=== PATIENT | female | born 1970 | race Two or more races ===

== ENCOUNTER 2024-07-29 10:40 | Inpatient (IN) | payer OTHER ==
[~2024-07-29] VITALS: Ht 162.6 cm; Wt 63.0 kg
[2024-07-29 11:15] LABS: BASOPHILS % (AUTO) 0.9 % (0.0-2.0); HEMATOCRIT 38.2 % (36-46); HEMOGLOBIN 12.4 g/dL (12.0-16.0); LYMPHOCYTES % (AUTO) 33.4 % (22.0-44.0); MEAN CORPUSCULAR HEMOGLOBIN 27.6 pg (26.0-34.0); MEAN CORPUSCULAR HGB CONC 32.3 G/dL (31.0-37.0); MEAN CORPUSCULAR VOLUME 85 fL (80-100); MONOCYTES # (AUTO) 0.5 K/uL (0.1-1.0); MONOCYTES % (AUTO) 7.5 % (2.0-9.0); NEUTROPHILS # (AUTO) 3.3 K/uL (1.8-7.7); NEUTROPHILS % (AUTO) 54.2 % (40.0-70.0); PLATELET COUNT (AUTO) 366 K/uL (150-450); RED BLOOD CELL COUNT(AUTO) 4.48 MIL/uL (4.00-5.20); RED CELL DISTRIBUTION WIDTH 13.3 % (11.5-14.5); WHITE BLOOD COUNT (AUTO) 6.1 K/uL (4.5-11.0)
[2024-07-29 11:27] LABS: ANION GAP 4 mmol/L (8-16); CALCIUM, TOTAL 8.8 mg/dL (8.8-10.5); CARBON DIOXIDE 32 mmol/L (22-29); CHLORIDE 109 mmol/L (98-107); CREATININE 0.72 mg/dL (0.60-1.30); GLOMERULAR FILTR. RATE CALC > 60 mL/min (>60); GLUCOSE,RANDOM 97 mg/dL (70-110); POTASSIUM 4.1 mmol/L (3.5-5.1); SODIUM SERUM 145 mmol/L (136-145); UREA NITROGEN, BLOOD 19 mg/dL (7-18)
[2024-07-29 11:30] LABS: TROPONIN I-HIGH SENSITIVITY 25 ng/L (<51)
[2024-07-29 11:41] LABS: APPEARANCE,URINE HAZY (CLEAR); BILIRUBIN,URINE NEGATIVE (NEGATIVE); COLOR,URINE YELLOW (YELLOW); GLUCOSE, URINE (UA) NEGATIVE (NEGATIVE); KETONES,URINE NEGATIVE (NEGATIVE); LEUKOCYTE ESTERASE ,URINE LARGE (NEGATIVE); NITRATE,URINE POSITIVE (NEGATIVE); OCCULT BLOOD,URINE NEGATIVE (NEGATIVE); PH,URINE 6.5 (5.0-8.0); PH,URINE DRUG SCREEN 6.5 (5.0-8.0); PROTEIN,URINE TRACE mg/dL (NEGATIVE); SPECIFIC GRAVITIY, URINE 1.025 (1.003-1.030); UROBILINOGEN,URINE <=1.0 mg/dL (<=1.0)
[2024-07-29 11:50] LABS: ALCOHOL, BLOOD (SERUM) < 3 mg/dL (0-10)
[2024-07-29 11:54] LABS: ALCOHOL, URINE DRUG SCREEN NEGATIVE (NEGATIVE); AMPHET/METH SCREEN,URINE NEGATIVE (NEGATIVE); BARBITURATE SCREEN, URINE NEGATIVE (NEGATIVE); BENZODIAZEPINES SCREEN,URINE NEGATIVE (NEGATIVE); CANNABINOID SCREEN,URINE NEGATIVE (NEGATIVE); COCAINE SCREEN,URINE NEGATIVE (NEGATIVE); METHADONE SCREEN, URINE NEGATIVE (NEGATIVE); OPIATE SCREEN,URINE NEGATIVE (NEGATIVE); PHENCYCLIDINE SCREEN,URINE NEGATIVE (NEGATIVE)
[2024-07-29] MEDS ORDERED: MAGNESIUM HYDROXIDE SUSPENSION 30 ML UDCUP PO PRN (12:30)
[2024-07-29] MEDS ORDERED: ZOLPIDEM TARTRATE 5 MG TABLET PO PRN (12:30)
[2024-07-29] MEDS: CefTRIAXone 1 GM/DEXTROSE 50 ML IV SCH (12:45)
[2024-07-29 13:04] LABS: BACTERIA,URINE Many /HPF (None Seen); RBC,URINE None Seen /HPF (0-2); WBC,URINE 26-50 /HPF (0-5)
[2024-07-29] MEDS ORDERED: INFLUENZA VIRUS VACCINE TVS (6MO+) 2024-25/PF 45 MCG/0.5 ML SYRINGE IM. ONE (16:45)
[2024-07-29 17:22] VITALS: BP 130/90; PULSE 65; RESP 19; TEMP 98; O2SAT 99
[2024-07-29 19:21] VITALS: BP 112/68; PULSE 60; RESP 18; TEMP 97.9; O2SAT 98
[2024-07-30 04:39] VITALS: BP 106/72; PULSE 59; RESP 18; TEMP 98.6; O2SAT 99
[2024-07-30 08:27] VITALS: BP 118/74; PULSE 57; RESP 18; TEMP 98.6; O2SAT 97
[2024-07-30] MEDS: FAMOTIDINE 20 MG TABLET PO SCH (09:24)
[2024-07-30] MEDS: ACETAMINOPHEN 325 MG TABLET PO PRN (09:24)
[2024-07-30] MEDS ORDERED: SODIUM CHLORIDE 0.9% 500 ML IV ONE (15:04)
[2024-07-30 20:24] VITALS: BP 101/59; PULSE 69; RESP 18; TEMP 98.7; O2SAT 97
[2024-07-31 04:53] VITALS: BP 113/68; PULSE 63; RESP 18; TEMP 98; O2SAT 95
[2024-07-31] MEDS: *CLINICAL-MEROPENEM DOSING CLINICAL ONE (12:12)
[2024-07-31] MEDS: MEROPENEM 1 GM in SODIUM CHLORIDE 0.9% 50 ML IV SCH (13:37)
[2024-07-31 20:20] VITALS: BP 133/81; PULSE 66; RESP 18; TEMP 98.6; O2SAT 99
[2024-08-01 09:06] VITALS: BP 103/72; PULSE 69; RESP 20; TEMP 97.9; O2SAT 95
[2024-08-01] MEDS ORDERED: LEVO-72 PO (12:12)
[2024-08-01] MEDS ORDERED: ACET-2247 PO (12:12)
== END 2024-08-01 14:41 | DRG 690 ==
LOC: EMS 10:44 → UNDOADMIN 12:43 → EDH 12:43 → 6S 15:33 → 6N 15:40 → AHU 07-30 15:29 → 6N 07-30 15:34
PROVIDERS: ADMIT Internal Medicine; ATTEND Internal Medicine
DX: N39.0 Urinary tract infection, site not specified (principal); Z16.12 Extended spectrum beta lactamase (ESBL) resistance; F22 Delusional disorders; E66.9 Obesity, unspecified; I10 Essential (primary) hypertension; B96.20 Unspecified Escherichia coli [E. coli] as the cause of diseases classified elsewhere; Z87.891 Personal history of nicotine dependence; Z68.23 Body mass index [BMI] 23.0-23.9, adult
CPT/HCPCS: 80048; 80307; 81001; 84484; 84703; 85025; 87077; 87086; 87186; 96365; 99285; G0480; J0696; J2185; J7040; J7050